=== PATIENT | male | born 1965 | race Caucasian/White ===

== ENCOUNTER 2016-09-16 14:04 | Day surgery (SDC) | payer BC, OTHER ==
--- NOTE | 2016-09-04 12:36 | HP ---
Chief Complaint - Chief Complaint Date of Service: 09/04/16 Chief Complaint: screening colonoscopy History of Present Illness: 51 year old male with no previous colonoscopies. No changes in bowels or blood in stool. No first degree relative with colon cancer. - Patient's Past Medical History Patient History - Medical: No pertinent hx Patient History - Cardiac/Respiratory: No pertinent hx Patient History - Cancer: No Hx of Cancer Patient History - Surgical Procedures: Appendectomy - 1975, open Patient History - Other: None - Family History Family History:: no untoward family reactions to anesthesia, no familial bleeding tendencies, no family history of clotting disorders, no family history of premature - Family History Mother Family History - Cancer: Liver Father Family History - Cardiac/Respiratory: Coronary Heart Disease Family History - Cancer: Colon - two sisters with colon cancer after age 70 - Social History Living Situations: spouse Abuse History: No History of abuse Psych History: No pertinent hx Does anyone smoke in the home?: No Smoking Status: Former smoker - 10 pack year history Have you smoked in the past 12 months: No Alcohol Use: occasionally Drug Use: none - Immunizations Immunizations Up to Date: Yes Hx Pneumococcal Vaccination: No History of Influenza Vaccine: No Review Of Systems (GEN) - Review of Systems EENTM: Present: No Symptoms Reported Respiratory: Present: No Symptoms Reported Cardiac: Present: No Symptoms Reported Abdominal: Present: No Symptoms Reported Genitourinary: Present: No Symptoms Reported Musculoskeletal: Present: No Symptoms Reported Neurological: Present: No Symptoms Reported Skin: Present: No Symptoms Reported Endocrine: Present: No Symptoms Reported Allergies/Adverse Reactions: Allergies Allergy/AdvReac Type Severity Reaction Status Date / Time No Known Drug Allergies Allergy Verified 09/04/16 12:26 Home Medications: HOME MEDICATIONS Ibuprofen 200 mg PO PRN 09/04/16 [Last Taken Unknown] Exam - Exam Vital Signs: BP 128/68 HR 70 Afebrile Ht 6'1 175# Constitutional: Present: Alert, Oriented x3, Cooperative, Well developed, Well nourished, No distress ENT Exam: Present: hearing grossly normal, pharynx normal Respiratory: Present: chest non-tender, lungs clear Cardiovascular/Chest: Present: normal peripheral pulses, regular rate, rhythm, no edema, no murmur Abdomen: Present: Normal bowel sounds, soft, nontender Extremity: Present: normal range of motion, normal inspection Skin Exam: Present: normal color, warm/dry, no cyanosis Neurologic: Present: no motor/sensory deficits, alert, normal mood/affect, oriented x 3 Appearance: Present: appropriate appearance, appropriate insight, neat, no memory impairment Eye contact: Present: good eye contact, normal speech Thoughts: Present: normal thought pattern, no apparent hallucination, normal mood /affect Assessment/Plan - Narrative Narrative: Discussed a colonoscopy for screening purposes. RBIC discussed and he wishes to proceed. Prep discussed (will use Suprep) Schedule at his convenience. Not a high risk for sedation. Class 1. Discuused possibility of biopsy or polypectomy. - Assessment/Plan (1) Screening for colon cancer Problem: Acute
[~2016-09-16 14:04] MED LIST: RINGERS SOLUTION,LACTATED 1,000 ML IV PRN
[2016-09-16] MEDS ORDERED: RINGERS SOLUTION,LACTATED 1,000 ML IV PRN (15:14)
--- NOTE | 2016-09-16 15:14 | OR ---
Operative Report - Dictated Report Narrative: DATE OF PROCEDURE: 09/16/2016 PREOPERATIVE DIAGNOSIS: #1 Screening colonoscopy POSTOPERATIVE DIAGNOSIS: #1 Screening colonoscopy #2 scattered sigmoid diverticulosis OPERATION: Colonoscopy SURGEON: Yimi Swartz M.D. [facility] ANESTHESIA : Macario Monroe PHARM TECH sedation INDICATIONS: This is 50 year old male who presents for a screening colonoscopy. I have discussed the risks, benefits, indications, and contraindications for colonoscopy with the possibility of biopsy and/or polypectomy. He understands, agrees, and wishes to proceed. He has undergone a SUPREP and has tolerated it well. PROCEDURE: The patient was brought to the operating theater and placed into the left lateral decubitus position. The patient underwent sedation per anesthesia , and a digital rectal exam was performed. This was noted to be unremarkable. The patient was noted to have no internal or external hemorrhoids. The Olympus video colonoscope was introduced and advanced into the rectum. The rectum was normal in appearance. The scope was then advanced through the sigmoid, where scattered small diverticular disease was noted. The scope was then advanced to the cecum using standard reduction techniques. He had a long tortuous colon. The appendiceal orifice was noted. The ileocecal valve was noted. The prep appeared to be excellent with a Sandwich prep score of 9. The scope was withdrawn slowly as the ascending, transverse, descending, and sigmoid colon were examined in a circumferential fashion. The scope was brought back into the rectum where it was retroflexed in the lower rectum was examined. The air was decompressed, and the scope was then removed. Withdrawal time was 11 minutes. POSTOPERATIVE CONDITION: The patient was awakened and taken to the ambulatory surgery center in good condition. No complications were encountered. FINDINGS: Fairly long, tortuous colon with sigmoid diverticulosis, minimal Specimens: 0 EBL: 0 The findings were discussed with the patient. I recommend a follow-up colonoscopy in years for screening purposes.
[2016-09-16 16:03] VITALS: BP 124/76
== END 2016-09-16 14:05 | disposition home or self-care (01) ==
LOC: AMB 14:04
PROVIDERS: ATTEND Surgery
PROC: 0DJD8ZZ Inspection of Lower Intestinal Tract, Via Natural or Artificial Opening Endoscopic (ICD-10-PCS; principal; 2016-09-16 15:00)
DX: Z12.11 Encounter for screening for malignant neoplasm of colon (principal); K57.30 Diverticulosis of large intestine without perforation or abscess without bleeding; Z68.22 Body mass index [BMI] 22.0-22.9, adult